=== PATIENT | male | born 1980 | race Caucasian/White ===

== ENCOUNTER 2019-05-12 00:27 | Emergency (ER) | payer OTHER ==
[2019-05-12 00:40] VITALS: TEMP 98.4; BMI 23.5
--- NOTE | 2019-05-12 00:44 | PDOC ---
History of Present Illness - General Chief Complaint: Pain Stated Complaint: ABD PAIN Time Seen by Provider: 05/12/19 00:31 - History of Present Illness Initial Comments: This 39-year-old man with a long history of type 1 DM and gastroparesis presents with 1 day history of progressive abdominal discomfort, distention and nausea. Patient states that he has a long history of gastroparesis but rarely ( once every few years) needs to be seen in the ER for abdominal discomfort. Today, he had increasing symptoms consistent with his gastroparesis. This usually develops secondary to dietary indiscretion; he did eat popcorn yesterday which can be a trigger. He denies any new features of pain. There is been no fever/chills/diarrhea. Patient had a prescription for Reglan tablets but believes it is outdated. Patient states that he tested his blood sugar few hours prior to presentation because he felt sweaty and thought he might be hypoglycemic. FS was 76 and patient began drinking sugar-containing fluids such as soda and lemonade to prevent further hypoglycemia. Past History - Past Medical History Allergies/Adverse Reactions: Allergies Allergy/AdvReac Type Severity Reaction Status Date / Time No Known Allergies Allergy Verified 05/16/12 19:36 Home Medications: Ambulatory Orders Insulin Glargine,Hum.rec.anlog [Lantus Solostar PEN] units SQ HS 05/16/12 NovoLOG FLEXPEN 05/16/12 Dextroamphetamine/Amphetamine [Adderall Xr 30 mg Capsule] 30 mg PO DAILY Metoclopramide HCl [Reglan] 10 mg PO QID PRN #30 tablet 07/03/17 Metoclopramide HCl [Reglan -] 10 mg PO TID #12 tablet 05/12/19 Ondansetron [Zofran *Odt*] 4 mg SL BID PRN #10 od.tablet 05/12/19 COPD: No Diabetes: Yes GI Disorders: Yes (GASTROPARESIS) - Psycho Social/Smoking Cessation Hx Smoking Status: No Smoking History: Unknown if ever smoked Have you smoked in the past 12 months: No Number of Cigarettes Smoked Daily: 0 Information on smoking cessation initiated: No Hx Alcohol Use: No Drug/Substance Use Hx: No Review of Systems - Review of Systems Able to Perform ROS?: Yes Comments:: 12 point review of systems is negative except for what is noted in the history of present illness *Physical Exam - Vital Signs Last Vital Signs Temp Pulse Resp BP Pulse Ox 98.4 F 88 14 120/80 100 05/12/19 00:30 05/12/19 00:30 05/12/19 00:30 05/12/19 00:30 05/12/19 00:30 - Physical Exam GENERAL: Adult male, alert and oriented x3, in moderate distress secondary to abdominal discomfort/nausea HEAD: Normal with no signs of trauma. EYES: PERRLA, EOMI, sclera anicteric, conjunctiva clear. ENT: Ears normal, nares patent, oropharynx clear without exudates. Dry mucous membranes. NECK: Normal range of motion, supple without lymphadenopathy, JVD, or masses. LUNGS: Breath sounds equal, clear to auscultation bilaterally. No wheezes, and no crackles. HEART:Regular rate and rhythm, normal S1 and S2 without murmur, rub or gallop. ABDOMEN:.normal bowel sounds; firm, moderately distended; no masses or tenderness EXTREMITIES: Normal range of motion, no edema. No clubbing or cyanosis. No erythema, or tenderness. NEUROLOGICAL: Cranial nerves II through XII grossly intact. Normal speech. No focal neurological deficits. MUSCULOSKELETAL: Back non-tender to palpation, no CVA tenderness SKIN: Warm, Dry, normal turgor, no rashes or lesions noted. ED Treatment Course - LABORATORY CBC & Chemistry Diagram: 05/12/19 01:10 05/12/19 01:10 Medical Decision Making - Medical Decision Making This 39-year-old man with a history of type I DM and gastroparesis presents with 1 day history of progressive symptoms consistent with gastroparesis. Exam as noted. IV access obtained and CBC/chemistry drawn. Patient received a liter normal saline IV hydration. FS was markedly elevated at 476 and patient received 8 units of regular insulin IV. Review of the medical record revealed that the patient had received Compazine/ Reglan/Zofran in the past when he presented with symptoms of gastroparesis. Since the patient was discharged with prescription for oral metoclopramide, it was inferred that this was the most effective medication for him. Reglan 10 mg IV administered Patient had initial improvement in his symptoms but nausea and discomfort recurred Meanwhile, laboratory evaluation was completed: CBC notable for white blood cell count of 15,600. Patient has had a history of elevated white blood cell counts in the past without evidence of acute infection. Mild elevation of potassium of 5.2 and marked hyperglycemia of 499 notable in the chemistry profile Patient was concerned that he might be becoming hypoglycemic in light of the 8 units of regular insulin IV administered. Fingerstick revealed that patient was not hypoglycemic : 376 Zofran 8 mg IV administered: Patient had significant and prolonged relief in his nausea/discomfort. He was discharged in the company of his mother with prescriptions for Zofran ODT 4 mg to be taken up to twice a day as needed for nausea and Reglan 10 mg up to 3 times a day as needed for nausea sent to his pharmacy Discharge - Discharge Information Problems reviewed: Yes Clinical Impression/Diagnosis: Gastroparesis Condition: Improved Disposition: HOME - Additional Discharge Information Prescriptions: Metoclopramide HCl [Reglan -] 10 mg PO TID #12 tablet Ondansetron [Zofran *Odt*] 4 mg SL BID PRN #10 od.tablet PRN Reason: Nausea - Follow up/Referral - Patient Discharge Instructions Patient Printed Discharge Instructions: Gastroparesis Additional Instructions: Reglan 10 mg up to 3 times a day as needed for nausea/abdominal discomfort Can also use Zofran ODT 4 mg up to twice a day as needed for nausea Avoid foods that cause your gastroparesis Follow-up with your hydroelectric operator within the next 48 hours Return to ER if you have persistent, severe abdominal discomfort or nausea - Post Discharge Activity
[2019-05-12] MEDS ORDERED: SODIUM CHLORIDE 1,000 ML IV STA (00:54)
[2019-05-12] MEDS ORDERED: METOCLOPRAMIDE HCL INJECTION 10 MG/2 ML VIAL IVPB ONE (01:01)
[2019-05-12] MEDS ORDERED: METOCLOPRAMIDE HCL INJECTION 10 MG/2 ML VIAL ONE (01:03)
[2019-05-12] MEDS ORDERED: INSULIN REGULAR HUMAN 100 UNITS/ML *VIAL IVPUSH ONE (01:16)
[2019-05-12] MEDS ORDERED: INSULIN REGULAR HUMAN 100 UNITS/ML *VIAL ONE (01:22)
[2019-05-12 01:59] LABS: BASO % 0.2 % (0-2.0); EOS % 0.6 % (0-4.5); HEMATOCRIT 48.5 % (35.4-49); HEMOGLOBIN 16.1 GM/dL (11.7-16.9); LYMPH % 3.5 % (8-40); MCH 31.7 pg (25.7-33.7); MCHC 33.2 g/dl (32.0-35.9); MEAN CELL VOLUME 95.3 fl (80-96); MEAN PLT VOLUME 9.4 fl (7.5-11.1); MONO % 6.6 % (3.8-10.2); NEUT % 89.1 % (42.8-82.8); PLATELET COUNT 270 K/MM3 (134-434); RBC 5.09 M/mm3 (4.00-5.60); RDW 13.8 % (11.9-15.9); WHITE BLOOD COUNT 15.4 K/mm3 (4.0-10.0)
[2019-05-12 02:50] LABS: BILIRUBIN,TOTAL 1.1 mg/dL (0.2-1); BLOOD UREA NITROGEN 15.7 mg/dL (7-18); CALCIUM 8.8 mg/dL (8.5-10.1); CREATININE 1.3 mg/dL (0.55-1.3); POTASSIUM 5.2 mmol/L (3.5-5.1); TOT PROT 7.2 g/dl (6.4-8.2)
[2019-05-12] MEDS ORDERED: ONDANSETRON 4 MG/2 ML VIAL IVPB ONE (03:05)
[2019-05-12] MEDS ORDERED: ONDANSETRON 4 MG/2 ML VIAL ONE (03:07)
[2019-05-12 04:01] VITALS: BP 118/75; PULSE 75
== END 2019-05-12 04:01 | disposition home or self-care (01) ==
LOC: FER 00:27
PROC: 3E033VG Introduction of Insulin into Peripheral Vein, Percutaneous Approach (ICD-10-PCS; principal; 2019-05-12)
PROC: 3E033GC Introduction of Other Therapeutic Substance into Peripheral Vein, Percutaneous Approach (ICD-10-PCS; 2019-05-12)
PROC: 3E0337Z Introduction of Electrolytic and Water Balance Substance into Peripheral Vein, Percutaneous Approach (ICD-10-PCS; 2019-05-12)
DX: K31.84 Gastroparesis (principal); E10.9 Type 1 diabetes mellitus without complications; Z79.4 Long term (current) use of insulin
CPT/HCPCS: 36415; 80053; 82962; 85025; 99283-25; J7030

== ENCOUNTER 2021-01-26 17:39 | Emergency (ER) | payer OTHER ==
[2021-01-26] MEDS ORDERED: FAMOTIDINE 20 MG/50 ML IVPB 20 MG/50 ML MG IVPB ONE ×2 (17:47→17:52)
[2021-01-26] MEDS ORDERED: ACETAMINOPHEN 1000 MG/100 ML VIAL (NON FORMULARY) IVPB ONE (17:47)
[2021-01-26] MEDS ORDERED: HALOPERIDOL LACTATE 5 MG/ML IM ONE (17:47)
[2021-01-26] MEDS ORDERED: LACTATED RINGERS SOLUTION 1000 ML INFUS.BAG IV ONE ×2 (17:48→18:50)
[2021-01-26] MEDS ORDERED: SODIUM CHLORIDE 0.9% 500 ML INFUS.BAG IV ONE (17:50)
[2021-01-26] MEDS ORDERED: ACETAMINOPHEN INJECTION 100 ML IVPB ONE (17:52)
[2021-01-26] MEDS ORDERED: HALOPERIDOL LACTATE 5 MG/ML SYRINGE ONE ×2 (17:52→19:26)
[2021-01-26 18:14] VITALS: BP 132/75; PULSE 87; TEMP 98.7; BMI 25.0
[2021-01-26 18:26] LABS: BASO % 4.8 % (0-2.0); EOS % 1.9 % (0-4.5); HEMATOCRIT 49.4 % (35.4-49); LYMPH % 11.9 % (8-40); MCH 31.9 pg (25.7-33.7); MCHC 34.5 g/dl (32.0-35.9); MEAN CELL VOLUME 92.5 fl (80-96); MEAN PLT VOLUME 8.6 fl (7.5-11.1); MONO % 4.1 % (3.8-10.2); NEUT % 77.3 % (42.8-82.8); PLATELET COUNT 327 10^3/uL (134-434); RBC 5.34 M/mm3 (4.00-5.60); RDW 13.1 % (11.9-15.9); WHITE BLOOD COUNT 13.3 K/mm3 (4.0-10.8)
[2021-01-26 18:33] LABS: ALBUMIN 4.2 g/dl (3.4-5.0); BILIRUBIN,TOTAL 1.2 mg/dl (0.2-1); CALCIUM 9.6 mg/dl (8.5-10); CREATININE 1.2 mg/dl (0.55-1.3); MAGNESIUM 2.1 mg/dL (1.8-2.4); TOT PROT 7.4 g/dl (6.4-8.2)
[2021-01-26] MEDS ORDERED: METOCLOPRAMIDE HCL INJECTION 10 MG/2 ML VIAL IVPB ONE (18:50)
[2021-01-26] MEDS ORDERED: METOCLOPRAMIDE HCL INJECTION 10 MG/2 ML VIAL ONE (18:50)
[2021-01-26] MEDS ORDERED: HALOPERIDOL DECANOATE 500 MG/5ML MDV IM ONE (19:30)
== END 2021-01-26 20:04 | disposition home or self-care (01) ==
LOC: FER 17:39
PROC: 3E0333Z Introduction of Anti-inflammatory into Peripheral Vein, Percutaneous Approach (ICD-10-PCS; principal; 2021-01-26)
PROC: 3E033GC Introduction of Other Therapeutic Substance into Peripheral Vein, Percutaneous Approach (ICD-10-PCS; 2021-01-26)
PROC: 3E033GC Introduction of Other Therapeutic Substance into Peripheral Vein, Percutaneous Approach (ICD-10-PCS; 2021-01-26)
PROC: 3E023GC Introduction of Other Therapeutic Substance into Muscle, Percutaneous Approach (ICD-10-PCS; 2021-01-26)
PROC: 3E023GC Introduction of Other Therapeutic Substance into Muscle, Percutaneous Approach (ICD-10-PCS; 2021-01-26)
DX: T40.711A Poisoning by cannabis, accidental (unintentional), initial encounter (principal)
CPT/HCPCS: 36415; 80053; 82962; 83735; 85025; 93005; 99285-25; J0131

== ENCOUNTER 2023-03-11 05:51 | Emergency (ER) | payer OTHER ==
[2023-03-11] MEDS ORDERED: SODIUM CHLORIDE 1,000 ML IV STA (05:56)
[2023-03-11] MEDS ORDERED: ONDANSETRON 4 MG/2 ML VIAL IVPB ONE (06:08)
[2023-03-11] MEDS ORDERED: INSULIN REGULAR HUMAN 100 UNITS/ML *VIAL SQ ONE (06:11)
[2023-03-11] MEDS ORDERED: ONDANSETRON 4 MG/2 ML VIAL ONE (06:13)
[2023-03-11] MEDS ORDERED: INSULIN REGULAR HUMAN 100 UNITS/ML *VIAL IVPUSH ONE (06:17)
[2023-03-11] MEDS ORDERED: INSULIN REGULAR HUMAN 100 UNITS/ML *VIAL ONE (06:19)
[2023-03-11 06:23] VITALS: BP 121/92; PULSE 58; RESP 22; BMI 25.8
[2023-03-11 07:56] LABS: BASO % 0.8 % (0-2.0); EOS % 1.3 % (0-4.5); HEMATOCRIT 42.5 % (35.4-49); HEMOGLOBIN 13.8 GM/dL (11.7-16.9); LYMPH % 12.7 % (8-40); MCH 30.7 pg (25.7-33.7); MCHC 32.4 g/dl (32.0-35.9); MEAN CELL VOLUME 94.9 fl (80-96); MEAN PLT VOLUME 8.5 fl (7.5-11.1); MONO % 4.7 % (3.8-10.2); NEUT % 80.5 % (42.8-82.8); PLATELET COUNT 278 10^3/uL (134-434); RBC 4.48 M/mm3 (4.00-5.60); RDW 13.7 % (11.9-15.9)
[2023-03-11 08:10] LABS: PH,URINE 6.5 (5.0-8.0); URINE APPEARANCE CLEAR; URINE BILIRUBIN NEGATIVE (NEGATIVE); URINE COLOR YELLOW; URINE GLUCOSE (UA) 3+ (NEGATIVE); URINE KETONE NEGATIVE (NEGATIVE); URINE LEUK ESTERASE NEGATIVE (NEGATIVE); URINE NITRITE NEGATIVE (NEGATIVE); URINE PROTEIN NEGATIVE (NEGATIVE); URINE UROBILINOGEN 0.2 mg/dL (0.2-1.0)
[2023-03-11 08:54] LABS: ALBUMIN 3.4 g/dl (3.4-5.0); ALK PHOS 121 U/L (45-117); ANION GAP 6 mmol/L (4-13); BILIRUBIN,TOTAL 0.8 mg/dL (0.2-1); BLOOD UREA NITROGEN 7.7 mg/dL (7-18); CALCIUM 8.4 mg/dL (8.5-10.1); CHLORIDE 98 mmol/L (98-107); CO2 25 mmol/L (21-32); CREATININE 1.4 mg/dL (0.55-1.3); GLUCOSE,RANDOM 840 mg/dL (74-106); POTASSIUM 4.3 mmol/L (3.5-5.1); SGOT/AST 13 U/L (15-37); SGPT/ALT 29 U/L (13-61); SODIUM 129 mmol/L (136-145); TOT PROT 6.1 g/dl (6.4-8.2)
[2023-03-11 09:39] LABS: VENOUS BASE EXCESS -3.6 mmol/L (-2-2); VENOUS O2 SATURATION 28.8 % (70-80); VENOUS PCO2 58.1 mmHg (38-52); VENOUS PH 7.244 (7.310-7.410)
== END 2023-03-11 09:04 | disposition home or self-care (01) ==
LOC: FER 05:51
PROC: 3E033GC Introduction of Other Therapeutic Substance into Peripheral Vein, Percutaneous Approach (ICD-10-PCS; principal; 2023-03-11)
PROC: 3E033GC Introduction of Other Therapeutic Substance into Peripheral Vein, Percutaneous Approach (ICD-10-PCS; 2023-03-11)
PROC: 3E0337Z Introduction of Electrolytic and Water Balance Substance into Peripheral Vein, Percutaneous Approach (ICD-10-PCS; 2023-03-11)
DX: R10.9 Unspecified abdominal pain (principal); R11.0 Nausea; K31.84 Gastroparesis; R73.9 Hyperglycemia, unspecified
CPT/HCPCS: 36415; 80053; 81003; 82803; 82962; 85025; 99284-25

== ENCOUNTER 2023-08-04 08:47 | Emergency (ER) | payer OTHER ==
[2023-08-04] MEDS ORDERED: METOCLOPRAMIDE HCL INJECTION 10 MG/2 ML VIAL ONE (09:00)
[2023-08-04] MEDS: SODIUM CHLORIDE 0.9% 1000 ML INFUS.BAG IV ONE ×2 (09:00→09:45)
[2023-08-04 09:13] VITALS: TEMP 97.7; BMI 27.3
[2023-08-04] MEDS: METOCLOPRAMIDE HCL INJECTION 10 MG/2 ML VIAL IVPB ONE (09:30)
[2023-08-04] MEDS: HALOPERIDOL LACTATE 5 MG/ML IVPUSH ONE (09:45)
[2023-08-04 09:46] LABS: ALBUMIN 4.8 g/dl (3.4-5.0); BILIRUBIN,TOTAL 1.6 mg/dl (0.2-1); CALCIUM 9.6 mg/dl (8.5-10.1); CREATININE 1.2 mg/dl (0.6-1.3); POTASSIUM 4.1 mmol/L (3.5-5.1)
[2023-08-04] MEDS ORDERED: HALOPERIDOL LACTATE 5 MG/ML ONE (09:48)
[2023-08-04] MEDS ORDERED: INSULIN (NOVOLOG) ASPART 100 UNITS/ML 10ML VIAL ONE (11:00)
[2023-08-04] MEDS: INSULIN (NOVOLOG) ASPART 100 UNITS/ML 10ML VIAL SQ ONE (11:02)
[2023-08-04 11:06] VITALS: BP 122/86; PULSE 72; RESP 17
== END 2023-08-04 11:31 | disposition home or self-care (01) ==
LOC: FER 08:47
PROC: 3E033GC Introduction of Other Therapeutic Substance into Peripheral Vein, Percutaneous Approach (ICD-10-PCS; principal; 2023-08-04)
PROC: 3E033GC Introduction of Other Therapeutic Substance into Peripheral Vein, Percutaneous Approach (ICD-10-PCS; 2023-08-04)
PROC: 3E033GC Introduction of Other Therapeutic Substance into Peripheral Vein, Percutaneous Approach (ICD-10-PCS; 2023-08-04)
PROC: 3E013VG Introduction of Insulin into Subcutaneous Tissue, Percutaneous Approach (ICD-10-PCS; 2023-08-04)
DX: R10.9 Unspecified abdominal pain (principal); R11.0 Nausea; K31.84 Gastroparesis
CPT/HCPCS: 36415; 80053; 82010; 82962; 93005; 99284-25